=== PATIENT | female | born 1940 | race Caucasian/White ===

== ENCOUNTER 2017-02-24 07:22 | Day surgery (SDC) | payer OTHER ==
[~2017-02-24] VITALS: Ht 160 cm; Wt 77.2 kg
[~2017-02-24 07:22] MED LIST: ALBU90OI; ASPI81CH; DULO60; ERGO400; ESCI10; FAMO20; Felodipine ER10 MG; Hair, Skin & N1 EACH; LEVSOD125; LISI20; NAPR500; POLY500; SPIR50
[2017-10-10] MEDS ORDERED: NAPR500 PO ×2 (09:16→09:17)
[2017-10-10] MEDS ORDERED: FAMO20 PO (09:17)
[2017-10-10] MEDS ORDERED: Felodipine ER10 MG PO (09:18)
[2017-10-10] MEDS ORDERED: Aspir 8181 MG PO (09:18)
[2017-10-10] MEDS ORDERED: ESCI10 PO (09:18)
[2017-10-10] MEDS ORDERED: ZESTRIL40 MG PO (09:18)
[2017-10-10] MEDS ORDERED: MAXIMUM DAILY1 EACH PO (09:18)
[2017-10-10] MEDS ORDERED: DULO60 PO (09:19)
[2017-10-10] MEDS ORDERED: SPIR25 PO (09:19)
[2017-10-10] MEDS ORDERED: LEVSOD125 PO (09:19)
[2017-10-10] MEDS ORDERED: ALBU90OI INH (09:20)
[2017-10-10] MEDS ORDERED: Super Calcium600 MG PO (09:21)
== END 2017-02-24 08:52 | disposition home or self-care (01) ==
LOC: ORSCSDS 07:22
PROVIDERS: Internal Medicine Gastroenterology
PROC: 0DBL8ZX Excision of Transverse Colon, Via Natural or Artificial Opening Endoscopic, Diagnostic (ICD-10-PCS; principal; 2017-02-24 08:45)
DX: Z12.11 Encounter for screening for malignant neoplasm of colon (principal); D12.3 Benign neoplasm of transverse colon; K57.30 Diverticulosis of large intestine without perforation or abscess without bleeding; K64.8 Other hemorrhoids; Z86.010 Personal history of colon polyps; Z87.891 Personal history of nicotine dependence; Z79.82 Long term (current) use of aspirin; Z79.899 Other long term (current) drug therapy
CPT/HCPCS: 88305; J0330; J1980; J2405

== ENCOUNTER → 2017-05-02 | Outpatient (CLI) | payer OTHER ==
[~2017-05-02] MED LIST changes: +ALBU90OI INH; +Aspir 8181 MG PO; +DULO60 PO; +ESCI10 PO; +FAMO20 PO; +Felodipine ER10 MG PO; +LEVSOD125 PO; +MAXIMUM DAILY1 EACH PO; +NAPR500 PO; +SPIR25 PO; +Super Calcium600 MG PO; +ZESTRIL40 MG PO
== END ==
LOC: LAB 11:00
DX: E78.5 Hyperlipidemia, unspecified (principal); E11.9 Type 2 diabetes mellitus without complications; E03.9 Hypothyroidism, unspecified; E55.9 Vitamin D deficiency, unspecified; I10 Essential (primary) hypertension
CPT/HCPCS: 82523; 82570

== ENCOUNTER 2017-10-17 10:05 | Day surgery (SDC) | payer OTHER ==
[~2017-10-17] VITALS: Ht 157.5 cm; Wt 80.5 kg
== END 2017-10-17 15:20 | disposition home or self-care (01) ==
LOC: ORSCSDS 10:05
PROVIDERS: Orthopaedic Surgery
PROC: 0JNK0ZZ Release Left Hand Subcutaneous Tissue and Fascia, Open Approach (ICD-10-PCS; principal; 2017-10-17 11:15)
PROC: 0LN80ZZ Release Left Hand Tendon, Open Approach (ICD-10-PCS; principal; 2017-10-17 11:15)
DX: M72.0 Palmar fascial fibromatosis [Dupuytren] (principal); I12.9 Hypertensive chronic kidney disease with stage 1 through stage 4 chronic kidney disease, or unspecified chronic kidney disease; N18.3 Chronic kidney disease, stage 3 (moderate); K21.9 Gastro-esophageal reflux disease without esophagitis; E03.9 Hypothyroidism, unspecified; Z79.82 Long term (current) use of aspirin; Z79.899 Other long term (current) drug therapy
CPT/HCPCS: 88304; J0690; J1100; J1885; J2250; J2405; J3010

== ENCOUNTER 2022-03-05 06:13 | Day surgery (SDC) | payer MEDICARE ==
[~2022-03-05] VITALS: Ht 160 cm; Wt 78.5 kg
[~2022-03-05 06:13] MED LIST changes: +Bentyl10 MG; +DRIZALMA SPRINK60 MG PO; +MULTIVITAMINS1 EAC3 PO; +Vitamin D2000 UNIT PO
== END 2022-03-05 08:07 | disposition home or self-care (01) ==
LOC: ORSCSDS 06:13
PROVIDERS: Internal Medicine Gastroenterology
PROC: 0DJ08ZZ Inspection of Upper Intestinal Tract, Via Natural or Artificial Opening Endoscopic (ICD-10-PCS; principal; 2022-03-05 07:30)
DX: R13.10 Dysphagia, unspecified (principal); E03.9 Hypothyroidism, unspecified; E78.5 Hyperlipidemia, unspecified; I12.9 Hypertensive chronic kidney disease with stage 1 through stage 4 chronic kidney disease, or unspecified chronic kidney disease; E11.22 Type 2 diabetes mellitus with diabetic chronic kidney disease; N18.30 Chronic kidney disease, stage 3 unspecified; E66.9 Obesity, unspecified; Z68.31 Body mass index [BMI] 31.0-31.9, adult; Z79.82 Long term (current) use of aspirin; Z79.899 Other long term (current) drug therapy
CPT/HCPCS: 82947; J2704; J7120

== ENCOUNTER → 2023-08-04 | Outpatient (CLI) | payer OTHER ==
[2023-08-04 13:37] LABS: BASOPHILS PERCENT AUTO 1 % (0-2); EOSINOPHILS ABSOLUTE AUTO 0.22 K/mm3 (0.00-0.68); EOSINOPHILS PERCENT AUTO 2 % (0-6); Hematocrit 39.2 % (33.0-51.0); Hemoglobin 13.3 g/dL (11.5-16.0); IMMATURE GRAN ABSOLUTE AUTO 0.04 K/mm3 (0.00-0.10); IMMATURE GRAN PERCENT AUTO 0 % (0-1); LYMPHOCYTES ABSOLUTE AUTO 3.74 K/mm3 (0.84-5.20); LYMPHOCYTES PERCENT AUTO 34 % (21-46); MONOCYTES ABSOLUTE AUTO 0.81 K/mm3 (0.16-1.47); MONOCYTES PERCENT AUTO 7 % (4-13); Mean Corpuscular HGB 30.2 pg (26.0-34.0); Mean Corpuscular HGB Conc 33.9 g/dL (31.5-36.5); Mean Corpuscular Volume 89 fL (80-100); Mean Platelet Volume 8.8 fL (9.1-12.4); NEUTROPHILS ABSOLUTE AUTO 6.05 K/mm3 (1.96-9.15); NEUTROPHILS PERCENT AUTO 55 % (41-73); Platelet Count 307 K/mm3 (150-400); RDW Coefficient Variation 13.5 % (11.7-14.2); Red Blood Cell Count 4.41 M/mm3 (3.80-5.20); White Blood Cell Count 10.96 K/mm3 (4.00-11.30)
[2023-08-04 13:57] LABS: Albumin, Blood 3.8 g/dL (3.4-5.0); Albumin/Globulin Ratio 0.8 (0.8-1.8); Bilirubin, Total 0.3 mg/dL (0.1-1.0); Calcium, Blood 9.7 mg/dL (8.5-10.1); Creatinine, Blood 1.2 mg/dL (0.40-1.00); Globulin, Blood 4.8 g/dL (2.2-4.0); Potassium, Blood 4.6 mmol/L (3.5-5.5); Thyroid Stimulating Hormone 2.849 uIU/mL (0.360-4.800); Total Protein, Blood 8.6 g/dL (6.4-8.2)
== END | disposition home or self-care (01) ==
LOC: LAB SHORT 13:33 → LAB 13:33
PROVIDERS: Physician Assistant
DX: M79.10 Myalgia, unspecified site (principal); R42 Dizziness and giddiness; R53.83 Other fatigue
CPT/HCPCS: 80053; 82550; 84443; 85025

== ENCOUNTER 2024-05-05 16:33 | Observation (INO) | payer OTHER ==
[~2024-05-05] VITALS: Ht 157.5 cm; Wt 73.9 kg
[2024-05-05 17:03] LABS: BASOPHILS ABSOLUTE AUTO 0.09 K/mm3 (0.00-0.23); BASOPHILS PERCENT AUTO 1 % (0-2); EOSINOPHILS ABSOLUTE AUTO 0.18 K/mm3 (0.00-0.68); EOSINOPHILS PERCENT AUTO 2 % (0-6); Hemoglobin 11.7 g/dL (11.5-16.0); IMMATURE GRAN ABSOLUTE AUTO 0.03 K/mm3 (0.00-0.10); IMMATURE GRAN PERCENT AUTO 0 % (0-1); LYMPHOCYTES ABSOLUTE AUTO 2.88 K/mm3 (0.84-5.20); LYMPHOCYTES PERCENT AUTO 29 % (21-46); MONOCYTES ABSOLUTE AUTO 0.78 K/mm3 (0.16-1.47); MONOCYTES PERCENT AUTO 8 % (4-13); Mean Corpuscular HGB 29.7 pg (26.0-34.0); Mean Corpuscular HGB Conc 32.5 g/dL (31.5-36.5); Mean Corpuscular Volume 91 fL (80-100); Mean Platelet Volume 8.4 fL (9.1-12.4); NEUTROPHILS ABSOLUTE AUTO 6.14 K/mm3 (1.96-9.15); NEUTROPHILS PERCENT AUTO 61 % (41-73); Platelet Count 307 K/mm3 (150-400); RDW Coefficient Variation 13.6 % (11.7-14.2); RDW Standard Deviation 45.4 fL (35.1-46.3); Red Blood Cell Count 3.94 M/mm3 (3.80-5.20)
[2024-05-05 17:22] LABS: Albumin, Blood 3.6 g/dL (3.4-5.0); Bilirubin, Total 0.3 mg/dL (0.1-1.0); Bun/Creatinine Ratio 30.3 (12.0-20.0); Calcium, Blood 9.1 mg/dL (8.5-10.1); Creatinine, Blood 1.19 mg/dL (0.40-1.00); Globulin, Blood 3.6 g/dL (2.2-4.0); Potassium, Blood 4.2 mmol/L (3.5-5.5); Total Protein, Blood 7.2 g/dL (6.4-8.2)
[2024-05-05 17:50] LABS: Prothrombin Time Results 10.7 Sec (9.7-11.5)
[2024-05-05] MEDS ORDERED: Acetaminophen 500 MG Tab PO ONE (18:35)
[2024-05-05] MEDS ORDERED: Metoclopramide HCl 5MG / ML 2ML Vial IV ONE (18:35)
[2024-05-05] MEDS ORDERED: NS 1,000 ML IV SCH (18:40)
[2024-05-05] MEDS ORDERED: DiphenhydrAMINE HCl 50 MG/ML 1ML Vial IV ONE (18:40)
[2024-05-05] MEDS ORDERED: Ketorolac Tromethamine 15mg Vial IV ONE (18:40)
[2024-05-05] MEDS ORDERED: Mag Sulfate 1 GM/D5% 100ML 100 ML IV ONE (18:40)
[2024-05-05] MEDS ORDERED: FLU VACC TS2024-25(6MOS UP)/PF 45 MCG/0.5 ML SYRINGE IM ONE (21:00)
[2024-05-05 21:19] LABS: Cholesterol 215 mg/dL (50-200); HDL Cholesterol 43 mg/dL (>39); LDL/HDL RATIO 2.7; Low Density Lipoprotein Chol 116 mg/dL (0-110); Triglycerides 280 mg/dL (30-160); Very Low Density Lipoprot Chol 56 mg/dL (6-32)
[2024-05-05 22:34] VITALS: BP 160/76
[2024-05-06 05:00] LABS: BASOPHILS ABSOLUTE AUTO 0.07 K/mm3 (0.00-0.23); BASOPHILS PERCENT AUTO 1 % (0-2); EOSINOPHILS ABSOLUTE AUTO 0.19 K/mm3 (0.00-0.68); EOSINOPHILS PERCENT AUTO 2 % (0-6); Hematocrit 36.1 % (33.0-51.0); Hemoglobin 12.3 g/dL (11.5-16.0); IMMATURE GRAN ABSOLUTE AUTO 0.02 K/mm3 (0.00-0.10); IMMATURE GRAN PERCENT AUTO 0 % (0-1); LYMPHOCYTES ABSOLUTE AUTO 3.02 K/mm3 (0.84-5.20); LYMPHOCYTES PERCENT AUTO 36 % (21-46); MONOCYTES ABSOLUTE AUTO 0.71 K/mm3 (0.16-1.47); MONOCYTES PERCENT AUTO 9 % (4-13); Mean Corpuscular HGB 30.9 pg (26.0-34.0); Mean Corpuscular HGB Conc 34.1 g/dL (31.5-36.5); Mean Corpuscular Volume 91 fL (80-100); Mean Platelet Volume 8.7 fL (9.1-12.4); NEUTROPHILS ABSOLUTE AUTO 4.33 K/mm3 (1.96-9.15); NEUTROPHILS PERCENT AUTO 52 % (41-73); Platelet Count 306 K/mm3 (150-400); RDW Coefficient Variation 13.7 % (11.7-14.2); RDW Standard Deviation 45.5 fL (35.1-46.3); Red Blood Cell Count 3.98 M/mm3 (3.80-5.20); White Blood Cell Count 8.34 K/mm3 (4.00-11.30)
[2024-05-06 05:03] VITALS: BP 163/76
[2024-05-06 05:23] LABS: Albumin, Blood 3.4 g/dL (3.4-5.0); Albumin/Globulin Ratio 0.9 (0.8-1.8); Bilirubin, Total 0.4 mg/dL (0.1-1.0); Globulin, Blood 3.7 g/dL (2.2-4.0); Potassium, Blood 4.1 mmol/L (3.5-5.5); Total Protein, Blood 7.1 g/dL (6.4-8.2)
[2024-05-06 08:06] VITALS: BP 144/73
[2024-05-06] MEDS ORDERED: Atorvastatin 40 MG Tab PO SCH (09:00)
[2024-05-06] MEDS ORDERED: Enoxaparin 40 MG/0.4 ML SYR SC SCH (09:00)
[2024-05-06] MEDS ORDERED: Aspirin 81 MG Chew PO SCH (09:00)
[2024-05-06] MEDS ORDERED: Clopidogrel Bisulfate 75 MG Tab PO SCH (09:00)
--- NOTE | 2024-05-06 11:17 | NUR ---
AM NOTE: PATIENT A/OX4, SPEECH CLEAR, ANSWER TO QUESTIONS APPROPRIATELY AND ABLE TO MAKE NEEDS KNOWN. PATIENT STRENGTH AND HEALTH WORKERS ARE EQUAL TO ALL EXTREMITIES c NO DEFICIT NOTED. PATIENT TOOK HER SCHEDULED AM MEDS c H2O WITHOUT ANY DIFFICULTIES SWALLOWING AND NO COUGHING NOTED. PATIENT STILL NPO AWAITING FOR ST EVAL. CALLED DR. GUTIERREZ FOR AN UPDATES AND ASKED FOR A PLAN OF CARE. PER DR. GUTIERREZ PATIENT CAN EAT c DIABETIC DIET. THIS RN PERFORMED A BEDSIDE SWALLOW EVAL; PATIENT SITTING UPRIGHT IN BED, GIVEN FRESH ICE H20, YOGURT AND NORMAN CRACKERS. PATIENT ABLE TO SWALLOW WITHOUT ANY DIFFICULTIES AND NO COUGHING NOTED T/O THE PROCESS. WCTM PATIENT T/O THE DAY. PATIENT DAUGHTER AT BEDSIDE THIS TIME. CALL LIGHT IN REACH.
[2024-05-06 13:00] VITALS: BP 185/73
[2024-05-06 13:05] VITALS: BP 153/84
[2024-05-06] MEDS ORDERED: CLOP75 PO (14:57)
[2024-05-06] MEDS ORDERED: MULTIVITAMIN PO (14:57)
[2024-05-06] MEDS ORDERED: ATOR80 PO (14:57)
[2024-05-06] MEDS ORDERED: LEVSOD150 PO (14:59)
--- NOTE | 2024-05-06 15:27 | NUR ---
SHIFT SUMMARY: PATIENT A/OX4, ANSWER TO QUESTIONS APPROPRIATELY, SPEECH CLEAR, EXTERNAL AUDITOR AND STRENGTH ARE EQUAL TO ALL EXTREMITIES c NO DEFICIT NOTED. PATIENT DENIES HEADACHE, CP/PRESSURE, SOB, N/V AND DIZZINESS. PATIENT ON TELE, SR HR IN THE MID 80'S BPM. PATIENT ON CC/HEART HEALTHY DIET, ATE 95% OF HER LUNCH c NO DIFFICULTIES SWALLOWING ALL PO INTAKE. PATIENT HAD HER ECHO AND MRI DONE TODAY, DR. GUTIERREZ SPOKE c PATIENT AND DAUGHTER AT BEDSIDE c THE TEST RESULT. PATIENT AND DAUGHTER VERBALIZED UNDERSTANDING AND NO FURTHER QUESTIONS. PATIENT RECEIVED SCHEDULED MEDS PER EMAR. VITAL SIGNS REVIEWED. PIV TO BOTH AC DC'D. PATIENT DISCHARGE HOME. DISCHARGE INSTRUCTIONS PACKET GIVEN TO PATIENT. PATIENT EDUCATED ON ADMITTING DX'S OF TIA, S/S, TX, NEW RX, AND TO F/U c PCP. PATIENT VERBALIZED UNDERSTANDING AND NO FURTHER QUESTIONS AT THIS TIME. RX WAS FAXED TO PATIENT PREFERRED [email or web address]. ALL PERSONAL BELONGINGS WERE SENT c THE PATIENT. PATIENT LEFT THE ROOM AT 1524, TRASNPORTED VIA W/CHAIR TO PATIENT ENTRANCE.
[2024-05-06] MEDS ORDERED: METF500 PO (15:47)
== END 2024-05-06 15:23 | disposition home or self-care (01) ==
LOC: ER 16:33 → MEDS 20:55 → ERHOLD 20:55 → MEDS 22:25
PROVIDERS: Family Medicine; Student in an Organized Health Care Education/Training Program; ADMIT Internal Medicine
DX: I63.9 Cerebral infarction, unspecified (principal); E03.9 Hypothyroidism, unspecified; E11.9 Type 2 diabetes mellitus without complications; I10 Essential (primary) hypertension; Z79.82 Long term (current) use of aspirin; Z79.899 Other long term (current) drug therapy
CPT/HCPCS: 36415; 70450; 70496; 70498; 70551; 80053; 80061; 82947; 84443; 84484; 85025; 85610; 85730; 93005; 93010; 93306; 96365-59; 96375; 99285-25; A9270; G0378; J1200; J1885; J2765; J3475; J7030; Q9967